=== PATIENT | female | born 1950 | race African-American/Black ===

== ENCOUNTER 2018-01-03 15:36 | Emergency (ER) | payer MEDICARE ==
[~2018-01-03] VITALS: Ht 152.4 cm; Wt 49.0 kg
[2018-01-03 15:55] VITALS: BP 148/105
[2018-01-03] MEDS: fentaNYL 0.05 MG/ML VIAL IM ONE (17:04)
[2018-01-03] MEDS: methylPREDNISolone SS 125 MG/2 ML VIAL IM ONE (17:04)
== END 2018-01-03 17:22 | disposition home or self-care (01) ==
LOC: MED 15:36
DX: B02.9 Zoster without complications (principal); R03.0 Elevated blood-pressure reading, without diagnosis of hypertension
CPT/HCPCS: 96372; 99283; J2930; J3010